=== PATIENT | female | born 1950 ===

== ENCOUNTER 2017-10-16 12:37 | Emergency (ER) | payer MEDICARE ==
[2017-10-16 12:37] VITALS: BMI 37.7
[2017-10-16 13:04] VITALS: RESP 18
--- NOTE | 2017-10-16 15:57 | C.PDOC ---
History Of Present Illness 67 y/o female with history of DM and HTN presents to ED with complaints of left leg pain radiating to left buttock for 2 days with associated tingling. Patient states pain is worse when walking and reports taking 1 aspirin with no improvement. Patient requesting xray of area and denies injury, trauma or any other complaints at this time. Time Seen by Provider: 10/16/17 14:55 Chief Complaint (Nursing): Lower Extremity Problem/Injury Past Medical History Vital Signs: Last Vital Signs Temp 98.5 F 10/16/17 13:00 Pulse 64 10/16/17 13:00 Resp 18 10/16/17 13:00 BP 145/81 10/16/17 13:00 Pulse Ox 97 10/16/17 13:00 - Medical History PMH: Diabetes, HTN (forgot the name of medication she takes), Hypercholesterolemia Denies: Chronic Kidney Disease Surgical History: Cholecystectomy Denies: Pacemaker - [facility] Procedures CORONAR ARTERIOGR-2 CATH (11/25/14) ENDOSC POLYPECTOMY OF LG INTEST (09/18/14) LEFT HEART CARDIAC CATH (11/25/14) LT HEART ANGIOCARDIOGRAM (11/25/14) Family History: States: Unknown Family Hx - Social History Hx Tobacco Use: No Hx Alcohol Use: No Hx Substance Use: No - Immunization History Hx Tetanus Toxoid Vaccination: No Hx Influenza Vaccination: Yes Hx Pneumococcal Vaccination: Yes ED Course And Treatment O2 Sat by Pulse Oximetry: 97 Disposition - Disposition
--- NOTE | 2017-10-16 16:00 | C.PDOC ---
Time Seen by Provider: 10/16/17 14:55 Chief Complaint (Nursing): Lower Extremity Problem/Injury Past Medical History Vital Signs: Last Vital Signs Temp 98.5 F 10/16/17 13:00 Pulse 64 10/16/17 13:00 Resp 18 10/16/17 13:00 BP 145/81 10/16/17 13:00 Pulse Ox 97 10/16/17 13:00 - Medical History PMH: Diabetes, HTN (forgot the name of medication she takes), Hypercholesterolemia Denies: Chronic Kidney Disease Surgical History: Cholecystectomy Denies: Pacemaker - [facility] Procedures CORONAR ARTERIOGR-2 CATH (11/25/14) ENDOSC POLYPECTOMY OF LG INTEST (09/18/14) LEFT HEART CARDIAC CATH (11/25/14) LT HEART ANGIOCARDIOGRAM (11/25/14) Family History: States: Unknown Family Hx - Social History Hx Tobacco Use: No Hx Alcohol Use: No Hx Substance Use: No - Immunization History Hx Tetanus Toxoid Vaccination: No Hx Influenza Vaccination: Yes Hx Pneumococcal Vaccination: Yes ED Course And Treatment O2 Sat by Pulse Oximetry: 97 Medical Decision Making Medical Decision Making: pt feeling much better after toradol, will d/c with tylenol and muscle relaxant. Disposition Counseled Patient/Family Regarding: Diagnosis, Need For Followup, Rx Given - Disposition Referrals: Haider Meneses MD [Staff Provider] - Disposition: HOME/ ROUTINE Disposition Time: 16:00 Condition: IMPROVED Additional Instructions: Por favor, tome Tylenol segn lo prescrito. [place] relajante muscular cuando est en casa, puede causar somnolencia, por lo tanto, no conduzca, no atienda a ni os ni maneje maquinaria mientras est tomando nimesh medicamento. Please take Tylenol as prescribed. Take muscle relaxant when at home, may make you sleepy, so do not drive, care for children or operate machinery, while taking this medicine. Prescriptions: Acetaminophen [Tylenol 325mg tab] 650 mg PO Q4 #50 tab Cyclobenzaprine [Cyclobenzaprine HCl] 5 mg PO TID #9 tab Instructions: Sciatica (DC) Forms: Gen Discharge Inst Egyptian, [facility] (Egyptian) - Clinical Impression Clinical Impression: Sciatica
[2017-10-16 16:30] VITALS: BP 138/84; PULSE 60; TEMP 97.6; O2SAT 98
== END 2017-10-16 16:30 | disposition home or self-care (01) ==
LOC: C.ER 12:37
DX: M54.30 Sciatica, unspecified side (principal)